=== PATIENT | female | born 1940 | race Two or more races ===

== ENCOUNTER 2019-09-23 10:37 | Emergency (ER) | payer OTHER, BC ==
[~2019-09-23] VITALS: Ht 165.1 cm; Wt 76.2 kg
[2019-09-23] MEDS ORDERED: PROBIOTIC1 EAC2 PO (11:07)
== END 2019-09-23 15:26 | disposition home or self-care (01) ==
LOC: ER 10:37
DX: S51.811A Laceration without foreign body of right forearm, initial encounter (principal); S60.418A Abrasion of other finger, initial encounter; S80.811A Abrasion, right lower leg, initial encounter; W18.09XA Striking against other object with subsequent fall, initial encounter; Y93.89 Activity, other specified; Y92.511 Restaurant or cafe as the place of occurrence of the external cause; Y99.8 Other external cause status